=== PATIENT | female | born 1955 | race Two or more races ===

== ENCOUNTER 2018-05-14 18:23 | Emergency (ER) | payer SELFPAY ==
[~2018-05-14] VITALS: Ht 175.3 cm; Wt 54.0 kg
[2018-05-14] MEDS ORDERED: ONDANSETRON 4MG ODT PO ONE (19:15)
[2018-05-14] MEDS ORDERED: SODIUM CHLORIDE 0.9% 1,000 ML IV ONE (19:15)
[2018-05-14 21:32] VITALS: BP 118/78
== END 2018-05-14 21:32 | disposition home or self-care (01) ==
LOC: ER 18:23
DX: R19.7 Diarrhea, unspecified (principal); R11.2 Nausea with vomiting, unspecified
CPT/HCPCS: 96360; 96361; 99283; J7030; Q0162